=== PATIENT | male | born 1970 | race Two or more races ===

== ENCOUNTER 2024-02-18 13:18 | Inpatient (IN) | payer OTHER ==
[~2024-02-18] VITALS: Ht 182.9 cm; Wt 77.3 kg
[2024-02-18 14:50] LABS: COVID AG,FIA SOURCE NASAL SWAB
[2024-02-18 15:05] LABS: ANION GAP 6 mmol/L (8-16); CALCIUM, TOTAL 9.3 mg/dL (8.8-10.5); CARBON DIOXIDE 30 mmol/L (22-29); CHLORIDE 103 mmol/L (98-107); GLOMERULAR FILTR. RATE CALC > 60 mL/min (>60); GLUCOSE,RANDOM 144 mg/dL (70-110); POTASSIUM 4.6 mmol/L (3.5-5.1); SODIUM SERUM 139 mmol/L (136-145); UREA NITROGEN, BLOOD 16 mg/dL (7-18)
[2024-02-18 15:07] LABS: BASOPHILS % (AUTO) 1.3 % (0.0-2.0); EOSINOPHILS % (AUTO) 0.2 % (1.0-6.0); HEMATOCRIT 48.4 % (41-53); HEMOGLOBIN 15.7 g/dL (13.5-17.5); LYMPHOCYTES # (AUTO) 1.1 K/uL (1.0-4.8); LYMPHOCYTES % (AUTO) 10.2 % (22.0-44.0); MEAN CORPUSCULAR HGB CONC 32.5 G/dL (31.0-37.0); MEAN CORPUSCULAR VOLUME 92 fL (80-100); MONOCYTES # (AUTO) 0.7 K/uL (0.1-1.0); MONOCYTES % (AUTO) 5.9 % (2.0-9.0); NEUTROPHILS # (AUTO) 9.2 K/uL (1.8-7.7); NEUTROPHILS % (AUTO) 82.4 % (40.0-70.0); PLATELET COUNT (AUTO) 352 K/uL (150-450); RED BLOOD CELL COUNT(AUTO) 5.24 MIL/uL (4.50-5.90); RED CELL DISTRIBUTION WIDTH 14.6 % (11.5-14.5); WHITE BLOOD COUNT (AUTO) 11.1 K/uL (4.5-11.0)
[2024-02-18 15:10] LABS: ALANINE AMINOTRANSFERASE 20 U/L (12-78); ALBUMIN 3.2 g/dL (3.4-5.0); ALKALINE PHOSPHATASE 59 U/L (46-116); ASPARTATE AMINOTRANSFERASE 24 U/L (15-37); BILIRUBIN,TOTAL 0.6 mg/dL (0.1-1.0); TOTAL PROTEIN, SERUM 6.9 g/dL (6.4-8.2)
[2024-02-18 15:14] LABS: SARS-COV2 (COVID) ANTIGEN,FIA Negative (Negative)
[2024-02-18] MEDS ORDERED: 0.9% SODIUM CHLORIDE 10 ML SYRINGE IVP PRN (17:30)
[2024-02-18 23:30] VITALS: BP 128/86; PULSE 60; RESP 18; TEMP 98.3; O2SAT 18; O2SAT 96
[2024-02-18] MEDS: HEPARIN SODIUM,PORCINE 5,000 UNITS/ML VIAL SQ SCH (23:30)
[2024-02-19 02:07] LABS: HIV 1-2 SCREEN 4TH GEN W/RFLX Non Reactive (Non Reactive)
[2024-02-19 05:46] VITALS: BP 134/68; PULSE 63; RESP 19; TEMP 97.3; O2SAT 97
[2024-02-19 07:44] LABS: BASOPHILS % (AUTO) 0.9 % (0.0-2.0); EOSINOPHILS % (AUTO) 0.5 % (1.0-6.0); HEMATOCRIT 47.5 % (41-53); HEMOGLOBIN 16.1 g/dL (13.5-17.5); LYMPHOCYTES # (AUTO) 1.6 K/uL (1.0-4.8); LYMPHOCYTES % (AUTO) 19.9 % (22.0-44.0); MEAN CORPUSCULAR HGB CONC 33.8 G/dL (31.0-37.0); MEAN CORPUSCULAR VOLUME 92 fL (80-100); MONOCYTES # (AUTO) 0.7 K/uL (0.1-1.0); MONOCYTES % (AUTO) 8.7 % (2.0-9.0); NEUTROPHILS # (AUTO) 5.7 K/uL (1.8-7.7); PLATELET COUNT (AUTO) 349 K/uL (150-450); RED BLOOD CELL COUNT(AUTO) 5.17 MIL/uL (4.50-5.90); RED CELL DISTRIBUTION WIDTH 14.6 % (11.5-14.5); WHITE BLOOD COUNT (AUTO) 8.2 K/uL (4.5-11.0)
[2024-02-19 08:06] LABS: ANION GAP 8 mmol/L (8-16); CALCIUM, TOTAL 8.7 mg/dL (8.8-10.5); CARBON DIOXIDE 27 mmol/L (22-29); CHLORIDE 102 mmol/L (98-107); CREATININE 0.96 mg/dL (0.60-1.30); GLOMERULAR FILTR. RATE CALC > 60 mL/min (>60); GLUCOSE,RANDOM 91 mg/dL (70-110); POTASSIUM 4.2 mmol/L (3.5-5.1); SODIUM SERUM 137 mmol/L (136-145); UREA NITROGEN, BLOOD 17 mg/dL (7-18)
[2024-02-19 09:57] VITALS: BP 120/87; PULSE 60; RESP 18; TEMP 97.3; O2SAT 100
[2024-02-19 15:58] LABS: MTB PCR w/Rif. Resistance-SPUT NOT DETECTED (Not Detectd)
[2024-02-19 19:45] VITALS: BP 117/76; PULSE 65; RESP 16; TEMP 98; O2SAT 99
[2024-02-20 08:01] VITALS: BP 122/79; PULSE 55; RESP 18; TEMP 98.2; O2SAT 99
[2024-02-20 13:23] LABS: MTB PCR w/Rif. Resistance-SPUT NOT DETECTED (Not Detectd)
[2024-02-20 20:15] VITALS: BP 130/80; PULSE 66; RESP 18; TEMP 98.1; O2SAT 99
[2024-02-21 10:53] VITALS: BP 127/75; PULSE 68; RESP 20; TEMP 98; O2SAT 98
[2024-02-21 19:20] VITALS: BP 137/77; PULSE 79; RESP 19; TEMP 97.9; O2SAT 97
[2024-02-22 05:21] VITALS: BP 102/75; PULSE 67; RESP 18; TEMP 97.9; O2SAT 99
[2024-02-22 06:06] LABS: QUANTIFERON+, Nil Value 0.01 IU/mL; QUANTIFERON+,Mitogen Value >10.00 IU/mL; QUANTIFERON+,TB1 Antigen Value 2.47 IU/mL; QUANTIFERON+,TB2 Antigen Value 5.78 IU/mL; QUANTIFERON, TB GOLD PLUS Positive (Negative)
[2024-02-22 07:52] VITALS: BP 122/63; PULSE 69; RESP 18; TEMP 98.9; O2SAT 100
[2024-02-22 20:00] VITALS: BP 124/71; PULSE 81; RESP 18; TEMP 98.1; O2SAT 97
[2024-02-23 20:23] VITALS: BP 117/67; PULSE 61; RESP 18; TEMP 98.1; O2SAT 98
[2024-02-23 21:13] LABS: INFLUENZA A-RTPCR,COMBO NEGATIVE (NEGATIVE); INFLUENZA B-RTPCR,COMBO NEGATIVE (NEGATIVE); RESPIRATORY SYNCYTIAL VRS-PCR NEGATIVE (NEGATIVE); SARS COVID19 RTPCR, COMBO NEGATIVE (NEGATIVE)
[2024-02-24 05:01] VITALS: BP 105/73; PULSE 58; RESP 18; TEMP 97.8; O2SAT 98
[2024-02-24 07:59] VITALS: BP 112/68; PULSE 62; RESP 19; TEMP 98.4; O2SAT 98
[2024-02-24] MEDS: ALBUTEROL SULFATE HFA 90 MCG/PUFF 8 GM INHALER IH SCH (14:45)
[2024-02-24] MEDS: CefTRIAXone 1 GM/DEXTROSE 50 ML IV SCH (17:41)
[2024-02-24] MEDS: AZITHROMYCIN 500 MG/NS 250 ML IV SCH (18:33)
[2024-02-24 19:35] VITALS: BP 121/75; PULSE 79; RESP 19; TEMP 98.2; O2SAT 97
[2024-02-24] MEDS: IPRATROPIUM BROMIDE 0.5 MG/2.5 ML NEB SOLUTION NEB SCH (20:00)
[2024-02-24] MEDS: ALBUTEROL SULFATE 2.5 MG/0.5 ML NEB SOLUTION NEB SCH (20:00)
[2024-02-24] MEDS: ACETYLCYSTEINE 10% 100 MG/ML 4 ML NEB SOLUTION NEB SCH (20:00)
[2024-02-25 04:00] VITALS: BP 125/73; PULSE 60; RESP 18; TEMP 97.8; O2SAT 99
[2024-02-25 08:47] VITALS: BP 117/82; PULSE 58; RESP 19; TEMP 97.8; O2SAT 99
[2024-02-25 13:43] VITALS: PULSE 62; RESP 18; O2SAT 98
[2024-02-25 13:58] VITALS: PULSE 63; RESP 18; O2SAT 99
[2024-02-25] MEDS: ALBUTEROL SULFATE 2.5 MG/0.5 ML NEB SOLUTION NEB ONE (17:45)
[2024-02-25] MEDS ORDERED: BENZONATATE 100 MG CAPSULE PO PRN (17:45)
[2024-02-25 19:15] VITALS: BP 129/69; PULSE 69; RESP 18; TEMP 98.1; O2SAT 97
[2024-02-25 20:30] VITALS: PULSE 77; RESP 16; O2SAT 98
[2024-02-26 04:30] VITALS: BP 122/71; PULSE 60; RESP 18; TEMP 97.7; O2SAT 98
[2024-02-26 08:24] VITALS: BP 106/70; PULSE 51; RESP 18; TEMP 97.9; O2SAT 98
[2024-02-26] MEDS: RIFAMPIN 300 MG CAPSULE PO SCH (17:34)
[2024-02-26] MEDS: ETHAMBUTOL HCL 400 MG TABLET PO SCH (17:34)
[2024-02-26] MEDS: PYRIDOXINE HCL 50 MG TABLET PO SCH (17:34)
[2024-02-26] MEDS: PYRAZINAMIDE 500 MG TABLET PO SCH (17:34)
[2024-02-26] MEDS: ISONIAZID 300 MG TABLET PO SCH (17:34)
[2024-02-26 20:09] VITALS: BP 124/66; PULSE 62; RESP 18; TEMP 97.6; O2SAT 97
[2024-02-27 05:28] VITALS: BP 111/66; PULSE 55; RESP 18; TEMP 97.5; O2SAT 99
[2024-02-27 08:23] VITALS: BP 111/70; PULSE 62; RESP 19; TEMP 97.4; O2SAT 98
[2024-02-27 09:51] LABS: BASOPHILS % (AUTO) 1.2 % (0.0-2.0); HEMATOCRIT 48.3 % (41-53); HEMOGLOBIN 15.9 g/dL (13.5-17.5); LYMPHOCYTES # (AUTO) 1.5 K/uL (1.0-4.8); LYMPHOCYTES % (AUTO) 20.3 % (22.0-44.0); MEAN CORPUSCULAR HEMOGLOBIN 30.2 pg (26.0-34.0); MEAN CORPUSCULAR HGB CONC 32.9 G/dL (31.0-37.0); MEAN CORPUSCULAR VOLUME 92 fL (80-100); MONOCYTES # (AUTO) 0.6 K/uL (0.1-1.0); MONOCYTES % (AUTO) 8.3 % (2.0-9.0); NEUTROPHILS % (AUTO) 69.2 % (40.0-70.0); PLATELET COUNT (AUTO) 345 K/uL (150-450); RED BLOOD CELL COUNT(AUTO) 5.26 MIL/uL (4.50-5.90); RED CELL DISTRIBUTION WIDTH 14.5 % (11.5-14.5); WHITE BLOOD COUNT (AUTO) 7.2 K/uL (4.5-11.0)
[2024-02-27 10:01] LABS: ANION GAP 9 mmol/L (8-16); CALCIUM, TOTAL 9.1 mg/dL (8.8-10.5); CARBON DIOXIDE 27 mmol/L (22-29); CHLORIDE 103 mmol/L (98-107); GLOMERULAR FILTR. RATE CALC > 60 mL/min (>60); GLUCOSE,RANDOM 102 mg/dL (70-110); POTASSIUM 4.7 mmol/L (3.5-5.1); SODIUM SERUM 139 mmol/L (136-145); UREA NITROGEN, BLOOD 15 mg/dL (7-18)
[2024-02-27 10:06] LABS: ALANINE AMINOTRANSFERASE 23 U/L (12-78); ALBUMIN 3.1 g/dL (3.4-5.0); ALKALINE PHOSPHATASE 60 U/L (46-116); ASPARTATE AMINOTRANSFERASE 22 U/L (15-37); BILIRUBIN,TOTAL 1.2 mg/dL (0.1-1.0); TOTAL PROTEIN, SERUM 6.9 g/dL (6.4-8.2)
[2024-02-27] MEDS: IPRATROPIUM BROMIDE 0.5 MG/2.5 ML NEB SOLUTION NEB PRN (19:29)
[2024-02-27] MEDS: ALBUTEROL SULFATE 2.5 MG/0.5 ML NEB SOLUTION NEB PRN (19:30)
[2024-02-27 19:32] VITALS: PULSE 67; RESP 18; O2SAT 97
[2024-02-27 19:33] VITALS: PULSE 67; RESP 18; O2SAT 97
[2024-02-27] MEDS: ZOLPIDEM TARTRATE 10 MG TABLET PO PRN (20:01)
[2024-02-27 20:12] VITALS: BP 136/70; PULSE 64; RESP 20; TEMP 97.8; O2SAT 96
[2024-02-28 06:03] VITALS: BP 112/74; PULSE 62; RESP 20; TEMP 97.9; O2SAT 97
[2024-02-28] MEDS: PYRAZINAMIDE 500 MG TABLET PO SCH (08:45)
[2024-02-28 20:16] VITALS: BP 113/61; PULSE 62; RESP 20; TEMP 97.7; O2SAT 98
[2024-02-29 06:30] VITALS: BP 113/61; PULSE 55; RESP 20; TEMP 98; O2SAT 96
[2024-02-29 07:56] VITALS: BP 109/75; PULSE 53; RESP 20; TEMP 97.6; O2SAT 96
[2024-02-29 19:17] VITALS: BP 122/72; PULSE 66; RESP 20; TEMP 97.9; O2SAT 97
[2024-03-01 06:14] VITALS: BP 118/66; PULSE 62; RESP 20; TEMP 97.8; O2SAT 99
[2024-03-01 09:05] VITALS: BP 109/62; PULSE 71; RESP 18; TEMP 97.9; O2SAT 99
[2024-03-01 12:36] LABS: BASOPHILS % (AUTO) 0.6 % (0.0-2.0); EOSINOPHILS % (AUTO) 0.9 % (1.0-6.0); HEMATOCRIT 46.6 % (41-53); HEMOGLOBIN 15.5 g/dL (13.5-17.5); LYMPHOCYTES # (AUTO) 1.4 K/uL (1.0-4.8); LYMPHOCYTES % (AUTO) 20.4 % (22.0-44.0); MEAN CORPUSCULAR HEMOGLOBIN 30.5 pg (26.0-34.0); MEAN CORPUSCULAR HGB CONC 33.2 G/dL (31.0-37.0); MEAN CORPUSCULAR VOLUME 92 fL (80-100); MONOCYTES # (AUTO) 0.5 K/uL (0.1-1.0); MONOCYTES % (AUTO) 7.9 % (2.0-9.0); NEUTROPHILS # (AUTO) 4.7 K/uL (1.8-7.7); NEUTROPHILS % (AUTO) 70.2 % (40.0-70.0); PLATELET COUNT (AUTO) 341 K/uL (150-450); RED BLOOD CELL COUNT(AUTO) 5.08 MIL/uL (4.50-5.90); RED CELL DISTRIBUTION WIDTH 14.4 % (11.5-14.5); WHITE BLOOD COUNT (AUTO) 6.7 K/uL (4.5-11.0)
[2024-03-01 13:07] LABS: ALANINE AMINOTRANSFERASE 19 U/L (12-78); ALBUMIN 3.2 g/dL (3.4-5.0); ALKALINE PHOSPHATASE 63 U/L (46-116); ANION GAP 7 mmol/L (8-16); ASPARTATE AMINOTRANSFERASE 18 U/L (15-37); BILIRUBIN,TOTAL 0.4 mg/dL (0.1-1.0); CARBON DIOXIDE 30 mmol/L (22-29); CHLORIDE 102 mmol/L (98-107); CREATININE 0.98 mg/dL (0.60-1.30); GLOMERULAR FILTR. RATE CALC > 60 mL/min (>60); GLUCOSE,RANDOM 104 mg/dL (70-110); POTASSIUM 4.5 mmol/L (3.5-5.1); SODIUM SERUM 139 mmol/L (136-145); UREA NITROGEN, BLOOD 17 mg/dL (7-18)
[2024-03-01 13:27] VITALS: BP 124/71; PULSE 66; RESP 17; TEMP 97.4; O2SAT 97
[2024-03-01 18:14] VITALS: BP 114/66; PULSE 71; RESP 16; TEMP 97.3; O2SAT 98
[2024-03-01 20:48] VITALS: BP 125/61; PULSE 58; RESP 18; TEMP 98.5; O2SAT 98
[2024-03-02 05:02] VITALS: BP 118/75; PULSE 51; RESP 18; TEMP 97.7; O2SAT 95
[2024-03-02 07:58] VITALS: BP 137/62; PULSE 56; RESP 20; TEMP 98; O2SAT 100
[2024-03-02] MEDS: ACETAMINOPHEN 325 MG TABLET PO PRN (20:23)
[2024-03-02 20:26] VITALS: BP 127/72; PULSE 61; RESP 18; TEMP 98.2; O2SAT 95
[2024-03-03 08:00] VITALS: BP 122/70; PULSE 54; RESP 18; TEMP 97.5; O2SAT 98
[2024-03-03 09:09] LABS: BASOPHILS % (AUTO) 1.1 % (0.0-2.0); HEMATOCRIT 49.1 % (41-53); HEMOGLOBIN 16.3 g/dL (13.5-17.5); LYMPHOCYTES # (AUTO) 1.4 K/uL (1.0-4.8); LYMPHOCYTES % (AUTO) 22.8 % (22.0-44.0); MEAN CORPUSCULAR HEMOGLOBIN 30.4 pg (26.0-34.0); MEAN CORPUSCULAR HGB CONC 33.2 G/dL (31.0-37.0); MEAN CORPUSCULAR VOLUME 92 fL (80-100); MONOCYTES # (AUTO) 0.6 K/uL (0.1-1.0); MONOCYTES % (AUTO) 9.6 % (2.0-9.0); NEUTROPHILS # (AUTO) 4.1 K/uL (1.8-7.7); NEUTROPHILS % (AUTO) 65.5 % (40.0-70.0); PLATELET COUNT (AUTO) 362 K/uL (150-450); RED BLOOD CELL COUNT(AUTO) 5.37 MIL/uL (4.50-5.90); RED CELL DISTRIBUTION WIDTH 14.1 % (11.5-14.5); WHITE BLOOD COUNT (AUTO) 6.3 K/uL (4.5-11.0)
[2024-03-03 09:19] LABS: ANION GAP 9 mmol/L (8-16); CALCIUM, TOTAL 8.8 mg/dL (8.8-10.5); CARBON DIOXIDE 28 mmol/L (22-29); CHLORIDE 102 mmol/L (98-107); CREATININE 0.96 mg/dL (0.60-1.30); GLOMERULAR FILTR. RATE CALC > 60 mL/min (>60); GLUCOSE,RANDOM 86 mg/dL (70-110); POTASSIUM 4.4 mmol/L (3.5-5.1); SODIUM SERUM 139 mmol/L (136-145); UREA NITROGEN, BLOOD 17 mg/dL (7-18)
[2024-03-03 09:24] LABS: ALANINE AMINOTRANSFERASE 21 U/L (12-78); ALBUMIN 3.1 g/dL (3.4-5.0); ALKALINE PHOSPHATASE 57 U/L (46-116); ASPARTATE AMINOTRANSFERASE 17 U/L (15-37); BILIRUBIN,TOTAL 0.5 mg/dL (0.1-1.0); TOTAL PROTEIN, SERUM 6.9 g/dL (6.4-8.2)
[2024-03-03] MEDS ORDERED: ALBU18HF12 IH (12:25)
[2024-03-03] MEDS ORDERED: ISON300T18 PO (12:26)
[2024-03-03] MEDS ORDERED: ETHA400T25 PO (12:26)
[2024-03-03] MEDS ORDERED: PYRA500T33 PO (12:27)
[2024-03-03] MEDS ORDERED: PYRI-9 PO (12:27)
[2024-03-03] MEDS ORDERED: RIFA300C63 PO (12:28)
== END 2024-03-03 17:33 | DRG 178 ==
LOC: EMS 13:18 → EDH 17:21 → 6N 21:59
PROVIDERS: ADMIT Internal Medicine; ATTEND Internal Medicine
DX: A15.0 Tuberculosis of lung (principal); E44.0 Moderate protein-calorie malnutrition; E87.3 Alkalosis; R65.10 Systemic inflammatory response syndrome (SIRS) of non-infectious origin without acute organ dysfunction; J18.9 Pneumonia, unspecified organism; D72.829 Elevated white blood cell count, unspecified; R73.9 Hyperglycemia, unspecified; R05.3 Chronic cough; F15.90 Other stimulant use, unspecified, uncomplicated; Z22.7 Latent tuberculosis; Z68.23 Body mass index [BMI] 23.0-23.9, adult
CPT/HCPCS: 0241U; 71045; 71250; 80048; 80053; 83735; 85025; 86480; 87015; 87070; 87205; 87206; 87389; 87556; 94640; 99285; J0456; J0696; J1644; J3535; 36415-L1; 36415-TC; J7613